=== PATIENT | female | born 1995 | race African-American/Black ===

== ENCOUNTER 2017-03-10 21:05 | Inpatient (IN) | payer MEDICAID ==
[~2017-03-10] VITALS: Ht 167.6 cm; Wt 65.8 kg
[2017-03-10] MEDS ORDERED: KETOROLAC TROMETHAMINE INJ 30 MG/ML VIAL IV ONE (22:30)
[2017-03-10] MEDS ORDERED: HYDROMORPHONE INJ 2 MG/ML DISP.SYRIN IV ONE (22:30)
[2017-03-10] MEDS ORDERED: ONDANSETRON HCL/PF 4 MG/2 ML VIAL IV ONE (22:30)
[2017-03-10] MEDS ORDERED: IV NS 0.9% 1,000 ML BAG IV ONE (22:30)
[2017-03-10] MEDS ORDERED: HYDROMORPHONE INJ 2 MG/ML DISP.SYRIN ONE ×2 (22:54→23:55)
[2017-03-10] MEDS ORDERED: ONDANSETRON HCL/PF 4 MG/2 ML VIAL ONE (22:58)
[2017-03-10] MEDS ORDERED: KETOROLAC TROMETHAMINE 15 MG/ML VIAL ONE (22:58)
[2017-03-10] MEDS ORDERED: HYDROMORPHONE 1 MG/1 ML DISP.SYRIN IV ONE (23:00)
[2017-03-10 23:15] LABS: BASOPHILS # (AUTO) 0.1 /CMM (0.0-0.2); BASOPHILS % (AUTO) 1.6 % (0.0-2.0); EOSINOPHILS # (AUTO) 0.1 /CMM (0.0-0.7); EOSINOPHILS % (AUTO) 1.5 % (0.0-6.0); HEMATOCRIT 26 % (33-45); HEMOGLOBIN 8.4 g/dL (11.5-14.8); LYMPHOCYTES % (AUTO) 36.6 % (20.0-44.0); MEAN CORPUSCULAR HEMOGLOBIN 33 PG (26.0-33.0); MEAN CORPUSCULAR HGB CONC 33 g/dl (31.0-36.0); MEAN CORPUSCULAR VOLUME 100 fL (82-100); MONOCYTES # (AUTO) 0.2 /CMM (0.1-1.30); MONOCYTES % (AUTO) 2.6 % (2.0-12.0); NEUTROPHILS # (AUTO) 4.7 /CMM (1.8-8.9); NEUTROPHILS % (AUTO) 57.7 % (43.0-81.0); PLATELET COUNT (AUTO) 491 /CMM (150-450); RDW COEFFICIENT OF VARIATION 21.7 (11.5-15.0); RED BLOOD CELL COUNT(AUTO) 2.59 MIL/uL (4.0-5.2); WHITE BLOOD COUNT (AUTO) 8.2 K/uL (4.3-11.0)
[2017-03-10 23:30] LABS: CALCIUM, SERUM 9.3 mg/dL (8.5-10.1); CREATININE 0.4 mg/dL (0.6-1.3); POTASSIUM 3.9 mmol/L (3.5-5.1)
[2017-03-10 23:33] LABS: EOSINOPHILS % (MANUAL) 2 % (0-4); LYMPHOCYTES % (MANUAL) 19 % (16-48); MONOCYTES % (MANUAL) 6 % (0-11.0); NEUTROPHILS % (MANUAL) 73 (42-76); PROTHROMBIN TIME 10.4 SECS (9.5-12.7)
[2017-03-11] MEDS ORDERED: diphenhydrAMINE HCL 50 MG/ML VIAL ONE (00:18)
[2017-03-11] MEDS ORDERED: diphenhydrAMINE HCL 50 MG/ML VIAL IV ONE (00:30)
[2017-03-11] MEDS ORDERED: HYDROMORPHONE INJ 2 MG/ML DISP.SYRIN ONE (01:43)
[2017-03-11] MEDS ORDERED: IV NS 0.9% 1,000 ML BAG IV ONE (02:00)
[2017-03-11] MEDS ORDERED: HYDROMORPHONE 1 MG/1 ML DISP.SYRIN IV ONE ×2 (02:00)
--- NOTE | 2017-03-11 02:08 | NUR ---
RADIOLOGY AT BEDSIDE FOR CXR
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
--- NOTE | 2017-03-11 02:56 | NUR ---
PAGED PANEL FOR ADMISSION. DR. SOCTT SPEAKING TO DR. VASQUEZ REGARDING ADMISSION
--- NOTE | 2017-03-11 03:15 | NUR ---
PT OBSERVED RESTING COMFORTABLY, STATING PAIN UNTOUCHED WITH CURRENT PAIN MEDICATION GIVEN. NO GUARDING OR GRIMACING OBSERVED, PT WATCHING TV NOTIFIED.
[2017-03-11] MEDS ORDERED: ACETAMINOPHEN 325 MG TABLET PO PRN (04:00)
[2017-03-11] MEDS ORDERED: LEVOFLOXACIN 750 MG /D5W 150ML 750 MG in PREMIX 1 EA IV SCH (04:00)
[2017-03-11] MEDS ORDERED: MAGNESIUM HYDROXIDE 30 ML UDC PO PRN (04:00)
[2017-03-11] MEDS ORDERED: Z GUARD REMEDY 2 OZ OINT TP PRN (04:00)
[2017-03-11] MEDS ORDERED: ZOLPIDEM TARTRATE 5 MG TABLET PO PRN (04:00)
[2017-03-11] MEDS ORDERED: ONDANSETRON HCL/PF 4 MG/2 ML VIAL IVP PRN (04:00)
[2017-03-11] MEDS ORDERED: MAG HYDROX/AL HYDROX/SIMETH 30 ML UDC PO PRN (04:00)
--- NOTE | 2017-03-11 04:32 | NUR ---
REPORT GIVEN TO BOOM ALTMAN FOR MS BED 207
[2017-03-11] MEDS ORDERED: LEVOFLOXACIN (750 MG) 750 MG TABLET ONE (04:36)
[2017-03-11] MEDS ORDERED: LEVOFLOXACIN 750 MG /D5W 150ML 150 ML IV ONE (04:37)
[2017-03-11 04:44] VITALS: BP 100/60
[2017-03-11] MEDS: IV NS 0.9% 1,000 ML IV PRN ×2 (04:55→20:26)
[2017-03-11 05:00] VITALS: BP 100/60
--- NOTE | 2017-03-11 06:39 | NUR ---
MS RN CLOSING NOTES RECEIVED PT VIA NONA AT 0444 ACLS PROTOCOL FROM [facility]. HEAD TO TOE ASSESSMENT IS DONE SKIN IS INTACT, ASLEEP AND EASILY AWAKEN, STABLE CONDITION. HEAD OF BED ELEVATED FOR BETTER LUNG EXPANSION. TOLERATING ROOM AIR 02 SAT AT 98%. NO NAUSEA, NO VOMITING, NO S/S OF ACUTE DISTRESS, NO SOB, NO COMPLAINS OF CHEST PAIN, RESPIRATIONS EVEN AND UNLABORED. PATIENT DENIES PAIN AT THIS TIME. AFEBRILE, ALL NURSING CARE RENDERED, NEEDS ATTENDED AND ANTICIPATED, KEPT CLEAN AND DRY AND COMFORTABLE, GOOD SKIN CARE PROVIDED. SAFETY HAZARD FREE ENVIRONMENT. ON ATB WITH NO A/R NOTED. CALL LIGHT WITHIN EASY TO REACH, ON LOW BED AT ALL TIMES TO ENSURE SAFETY, WILL ENDORSE TO THE NEXT SHIFT CONTINUE PLAN OF CARE.
--- NOTE | 2017-03-11 07:06 | NUR ---
PT GAVE ME HER MEDICATIONS AT BEDSIDE I TOLD HER THAT WE HAVE TO GET HER MEDICATIONS AND BRING IT TO THE PHARMACIST, WILL ENDORSE TO THE NEXT SHIFT AM BOOM KEEN TO PUT MEDICATION RECONCILIATION IN THE SYSTEM AND TO NOTIFY M.D
--- NOTE | 2017-03-11 08:00 | NUR ---
RN OPENING NOTES PATIENT RESTING COMFORTABLY IN BED. AOX4. DENIES SOB AND CP. COMPLAINING OF GENERALIZED PAIN. RESPIRATIONS EVEN AND UNLABORED. NO ACUTE DISTRESS. IV ACCESS IN THE RIGHT WRIST 22G. NS RUNNING AT 100MLS/HR. BED LOCKED IN THE LOWEST POSITION WITH SIDE RAILS UP X2. CALL LIGHT WITHIN REACH. WILL CONTINUE TO MONITOR ASSESS AND EDUCATE PATIENT THROUGHOUT SHIFT.
[2017-03-11 08:11] VITALS: BP 99/64
[2017-03-11] MEDS ORDERED: IBUP-1955 PO (08:43)
[2017-03-11] MEDS ORDERED: PREG75CA PO (08:43)
[2017-03-11] MEDS ORDERED: BISA-79 PO (08:43)
[2017-03-11] MEDS ORDERED: OXYC5TAB3 PO (08:43)
[2017-03-11] MEDS ORDERED: SENN1TAB21 PO (08:43)
[2017-03-11] MEDS ORDERED: SERT100T PO (08:43)
[2017-03-11] MEDS ORDERED: HYDR500C2 PO (08:43)
[2017-03-11] MEDS ORDERED: FOLI1TAB16 PO (08:43)
[2017-03-11] MEDS: HYDROCODONE/APAP 5/325MG 1 EACH TABLET PO PRN ×3 (08:50→22:48)
--- NOTE | 2017-03-11 10:00 | NUR ---
RN NOTES LACERATIONS NOTED TO BE ON THE ARMS BILATERALLY
[2017-03-11] MEDS: HYDROMORPHONE INJ 2 MG/ML DISP.SYRIN IV PRN ×3 (12:29→21:09)
--- NOTE | 2017-03-11 13:45 | NUR ---
RN NTOES CODE CERVANTES CALLED PATIENT PHYSICALLY AGGRESSIVE WITH STAFF AND VISITOR. THROWING BELONGINGS. PATIENT REQUIRING PHYSICAL STRAINING BY PERSONNEL. PATIENT AT THE BEDSIDE CRYING. DR. BURNS NOTIFIED. PSYCH CONSULT TO BE ORDERED.
--- NOTE | 2017-03-11 14:00 | NUR ---
PATIENT SEEN BY DR. HUMPHREY. ORDERS GIVEN FOR ATIVAN 0.5 MG IV. ORDERS PLACED. AND CARRIED OUT. PATIENT TO BE ASSESS WHEN PATIENT IS CALM.
[2017-03-11] MEDS ORDERED: LORAZEPAM INJ 2 MG/ML VIAL IV PRN (14:30)
[2017-03-11] MEDS ORDERED: LORAZEPAM 0.5 MG TABLET PO PRN (15:00)
--- NOTE | 2017-03-11 15:40 | NUR ---
RN NOTES NEW IV PLACED. 22 G RFA. TOLERATED WELL. 2 ATTEMPTS. NO S/S INFILTRATION. WILL CONTINUE TO MONITOR. DR. HUMPHREY RETURNED FOR EVALUATION. PATIENT TO BE PLACED ON 1:1 SITTER FOR SAFETY. WILL CONTINUE TO MONITOR.
[2017-03-11 15:58] VITALS: BP 115/69
--- NOTE | 2017-03-11 16:26 | NUR ---
RN NOTES [facility].
[2017-03-11] MEDS ORDERED: BISACODYL (5 MG) 5 MG TABLET.DR PO PRN (17:00)
[2017-03-11] MEDS ORDERED: SENNOSIDES/DOCUSATE SODIUM 1 TAB TABLET PO PRN (17:00)
[2017-03-11] MEDS: PREGABALIN 25 MG CAPSULE PO SCH (17:48)
--- NOTE | 2017-03-11 19:30 | NUR ---
RN NOTES RECEIVED PT. AWAKE ON BED, A/OX4, SITTER AT BEDSIDE, DENIES PAIN AT THIS TIME, NMO SOB, CALL LIGHT WITHIN REACH, SIDERAILS UP X2 CONTINUE TO MONITOR
--- NOTE | 2017-03-11 19:40 | NUR ---
RN CLOSING NOTES PATIENT RESTING COMFORTABLY IN BED. AOX4. 1:1 AT THE BED SIDE FOR SAFETY. PATIENT COMBATIVE. DENIES CP OR SOB. COMPLAINING OF PAIN 01/30. WILL ENDORSE. RESPIRATIONS EVEN AND UNLABORED. RFA 22G PATENT AND INTACT. NS RUNNING AT 100ML/HR. ALL NEEDS MET. ALL MEDS GIVEN APPROPRIATE. INCIDENT REPORT FILLED. WILL ENDORSE TO NIGHT RN FOR PATRICIA
[2017-03-11 20:00] VITALS: BP 123/69
[2017-03-11 20:09] VITALS: BP 123/69
--- NOTE | 2017-03-11 21:00 | NUR ---
RN NOTES COMPLAINED OF GENERALIZED PAIN- DILAUDID 2MG IV GIVEN ORDERED, V/S STABLE
--- NOTE | 2017-03-11 22:53 | NUR ---
RN NOTES COMPLAINED OF BACK PAIN AND ASKED FOR NORCO NORCO 5/325 MG PO GIVEN ORDERED, V/S STABLE
[2017-03-12] MEDS ORDERED: HYDROMORPHONE INJ 2 MG/ML DISP.SYRIN ONE (00:19)
[2017-03-12] MEDS: HYDROMORPHONE INJ 2 MG/ML DISP.SYRIN IV PRN ×4 (06:11→18:35)
[2017-03-12] MEDS: LEVOFLOXACIN 750 MG /D5W 150ML 750 MG in PREMIX 1 EA IV SCH (06:11)
[2017-03-12] MEDS: IV NS 0.9% 1,000 ML IV PRN ×2 (06:13→22:11)
[2017-03-12 06:22] LABS: APPEARANCE,URINE CLEAR (CLEAR); BILIRUBIN,URINE NEGATIVE (NEGATIVE); BLOOD, URINE NEGATIVE Ery/uL (NEGATIVE); COLOR,URINE YELLOW (YELLOW); KETONES,URINE NEGATIVE (NEGATIVE); LEUKOCYTE ESTERASE ,URINE NEGATIVE (NEGATIVE); NITRITE, URINE NEGATIVE (NEGATIVE); PROTEIN,URINE NEGATIVE (NEGATIVE); UGLUCOSE NEGATIVE (NEGATIVE)
--- NOTE | 2017-03-12 07:00 | NUR ---
RN NOTES AWAKE, DENIES PAIN AT THIS TIME, NO SOB, MORNING CARE RENDERED, SITTER AT BEDSIDE, PT. NEEDS ATTENDED
--- NOTE | 2017-03-12 07:00 | NUR ---
RN NOTES COMPLAINED OF BACK PAIN- DILAUDID 2MG IV GIVEN ORDERED, V/S STABLE
--- NOTE | 2017-03-12 07:30 | NUR ---
MS/RN Patient received Patient received from shift commander. Sleeping at this time, appears in no distress. Call light within reach as well as sitter for safety. Will continue to monitor.
--- NOTE | 2017-03-12 09:00 | NUR ---
MS/RN Medications Morning medications administered as ordered.
[2017-03-12] MEDS: SERTRALINE HCL 50 MG TABLET PO SCH (09:17)
[2017-03-12] MEDS: PREGABALIN 25 MG CAPSULE PO SCH ×2 (09:17→16:53)
[2017-03-12] MEDS: FOLIC ACID 1 MG TABLET PO SCH (09:17)
--- NOTE | 2017-03-12 10:10 | NUR ---
MS/RN Room change Patient's room changed as no hot water in room 207.
--- NOTE | 2017-03-12 10:15 | NUR ---
MS/RN Pain Patient complaining of pain 12/31. Dilaudid 2mg given as ordered, will monitor effectiveness.
[2017-03-12 10:23] LABS: EOSINOPHILS # (AUTO) 0.1 /CMM (0.0-0.7); EOSINOPHILS % (AUTO) 1.8 % (0.0-6.0); HEMATOCRIT 28 % (33-45); HEMOGLOBIN 9.1 g/dL (11.5-14.8); LYMPHOCYTES # (AUTO) 2.7 /CMM (0.8-4.8); LYMPHOCYTES % (AUTO) 49.8 % (20.0-44.0); MEAN CORPUSCULAR HEMOGLOBIN 33 PG (26.0-33.0); MEAN CORPUSCULAR HGB CONC 33 g/dl (31.0-36.0); MEAN CORPUSCULAR VOLUME 100 fL (82-100); MONOCYTES # (AUTO) 0.7 /CMM (0.1-1.30); MONOCYTES % (AUTO) 13.3 % (2.0-12.0); NEUTROPHILS # (AUTO) 1.9 /CMM (1.8-8.9); NEUTROPHILS % (AUTO) 35.1 % (43.0-81.0); PLATELET COUNT (AUTO) 500 /CMM (150-450); RDW COEFFICIENT OF VARIATION 23.2 (11.5-15.0); RED BLOOD CELL COUNT(AUTO) 2.79 MIL/uL (4.0-5.2); WHITE BLOOD COUNT (AUTO) 5.5 K/uL (4.3-11.0)
[2017-03-12 10:42] LABS: ALBUMIN 3.8 g/dL (3.4-5.0); BILIRUBIN,TOTAL 1.7 mg/dL (0.2-1.0); CALCIUM, SERUM 9.1 mg/dL (8.5-10.1); CREATININE 0.7 mg/dL (0.6-1.3); MAGNESIUM 1.8 mg/dL (1.8-2.4); POTASSIUM 4.2 mmol/L (3.5-5.1); TOTAL PROTEIN, SERUM 7.4 g/dL (6.4-8.2)
--- NOTE | 2017-03-12 10:45 | NUR ---
MS/RN Medical records [facility] Sourav hansen.
--- NOTE | 2017-03-12 11:00 | NUR ---
MS/RN Pain reassessment Pain now better controlled, patient now sleeping.
[2017-03-12 11:41] LABS: LYMPHOCYTES % (MANUAL) 31 % (16-48); MONOCYTES % (MANUAL) 10 % (0-11.0); NEUTROPHILS % (MANUAL) 59 (42-76)
[2017-03-12 11:47] LABS: ABG BASE EXCESS -1.5 mmol/L; ABG OXYGEN SATURATION 95.1 % (92.0-98.5); ABG PCO2 33.3 mmHg (35.0-45.0); ABG PH 7.443 (7.350-7.450); ABG PO2 92.8 mmHg (75.0-100.0); AaDO2 17.1 mmHg; COHb 0.8 % (0.5-1.5); MetHb 0.9 % (0.0-1.5); O2Hb 93.5 % (94.0-97.0); SITE, ABG Right Radial; VENT MODE, BG ROOM AIR
[2017-03-12] MEDS ORDERED: HYDROXYUREA 500 MG CAPSULE PO SCH (13:00)
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
--- NOTE | 2017-03-12 13:51 | NUR ---
MS/RN Increase in medication dose Patient requesting that dilaudid dose be increased, stating that the pain was getting worse. Will call .
[2017-03-12 16:00] VITALS: BP 126/81
[2017-03-12] MEDS: HYDROXYUREA 500 MG CAPSULE PO SCH (16:53)
--- NOTE | 2017-03-12 17:30 | NUR ---
MS/RN S/B Dr Tanner Seen by Dr Tanner - zoloft 100mg ordered for every morning. No other changes to medications.
--- NOTE | 2017-03-12 18:52 | NUR ---
MS/RN End note No changes in care at this time, last pain medication administered at 1830 for pain scale 9/10. Will endorse to night coordinator.
--- NOTE | 2017-03-12 19:30 | NUR ---
MS RN NOTE: PATIENT RESTING IN BED, NO ACUTE DISTRESS NOTED. BREATHING EVEN AND UNLABORED, NO SOB NOTED. IV TO RFA IN PLACE, INFUSING NS AT 100 ML/HR. PATIENT DENIES SUICIDAL THOUGHT AT THIS TIME. SITTER AT BEDSIDE. BED LOCKED AND IN LOWEST POSITION, CALL LIGHT IN REACH. WILL CONTINUE TO MONITOR.
[2017-03-12 20:00] VITALS: BP 115/90
[2017-03-13] MEDS: HYDROMORPHONE INJ 2 MG/ML DISP.SYRIN IV PRN ×4 (00:23→13:43)
--- NOTE | 2017-03-13 00:30 | NUR ---
MS RN NOTE: PATIENT COMPLAINS OF PAIN TO BACK 12/31, DILAUDID 2MG IV GIVEN PER MD ORDER. WILL CONTINUE TO MONITOR.
--- NOTE | 2017-03-13 02:15 | NUR ---
MS/RN NOTES RECEIVED PT. FROM [facility] SURG 2ND FLOOR VIA BED. PT. IS LYING IN BED RESTING COMFORTABLY. BREATHING EVEN AND UNLABORED ON ROOM AIR. NO SOB, RESPIRATORY DISTRESS OR COMPLAINTS OF PAIN NOTED AT THIS TIME. ORIENTED PT. TO ROOM. PT. DENIES ANY SUICIDAL THOUGHTS AT THIS TIME. PT. WITH 1:1 SITTER PRESENT AT BEDSIDE. BED LOCKED AND IN LOWEST POSITION, SIDE RAILS UP X2, CALL LIGHT WITHIN REACH, WILL CONTINUE TO MONITOR.
[2017-03-13] MEDS: LEVOFLOXACIN 750 MG /D5W 150ML 750 MG in PREMIX 1 EA IV SCH (05:55)
--- NOTE | 2017-03-13 06:44 | NUR ---
MS/RN NOTES PT. IS LYING IN BED AWAKE, ALERT AND ORIENTED X3. BREATHING EVEN AND UNLABORED ON ROOM AIR. NO SOB, RESPIRATORY DISTRESS OR COMPLAINTS OF PAIN NOTED AT THIS TIME. PT. WITH RIGHT FOREARM PERIPHERAL IV PRESENT, PATENT AND INTACT ADMINISTERING TO PT. NS @ 100 ML/HR. PT. WITH 1:1 SITTER PRESENT AT BEDSIDE. PT. DENIES ANY SUICIDAL THOUGHTS AT THIS TIME AND THROUGHOUT SHIFT. ALL PT. NEEDS MET. BED LOCKED AND IN LOWEST POSITION, SIDE RAILS UP X2, CALL LIGHT WITHIN REACH, WILL CONTINUE TO MONITOR. Addendum: 03/13/17 at 0647 by BROCK YOST RN WILL ENDORSE TO [facility] NURSE FOR CONTINUITY OF CARE.
--- NOTE | 2017-03-13 07:20 | NUR ---
RN OPENING NOTES RECEIVED PATIENT IN BED RESTING. A/OX4. NO ACUTE DISTRESS, NO SOB NOTED. DENIES PAIN AT THE MOMENT. IV SITE INTACT AND PATENT. NO SUICIDAL IDEATION, SITTER AT BEDSIDE FOR SAFETY. BED IN LOW POSITION, LOCKED, SIDERAILS UPX2, CALL LIGHT IN REACH, WILL CONTINUE TO MONITOR ACCORDINGLY.
[2017-03-13] MEDS ORDERED: SERTRALINE HCL 50 MG TABLET PO SCH (09:00)
[2017-03-13] MEDS: IV NS 0.9% 1,000 ML IV PRN (09:16)
[2017-03-13] MEDS: FOLIC ACID 1 MG TABLET PO SCH (09:21)
[2017-03-13] MEDS: SERTRALINE HCL 50 MG TABLET PO SCH (09:22)
[2017-03-13] MEDS: PREGABALIN 25 MG CAPSULE PO SCH (09:22)
[2017-03-13] MEDS: HYDROXYUREA 500 MG CAPSULE PO SCH (09:23)
[2017-03-13 10:18] LABS: HEMATOCRIT 26 % (33-45); HEMOGLOBIN 8.5 g/dL (11.5-14.8); MEAN CORPUSCULAR HEMOGLOBIN 33 PG (26.0-33.0); MEAN CORPUSCULAR HGB CONC 32 g/dl (31.0-36.0); MEAN CORPUSCULAR VOLUME 101 fL (82-100); PLATELET COUNT (AUTO) 430 /CMM (150-450); RDW COEFFICIENT OF VARIATION 21.6 (11.5-15.0); WHITE BLOOD COUNT (AUTO) 5.1 K/uL (4.3-11.0)
[2017-03-13 10:28] LABS: CALCIUM, SERUM 8.8 mg/dL (8.5-10.1); CREATININE 0.5 mg/dL (0.6-1.3); POTASSIUM 3.7 mmol/L (3.5-5.1)
--- NOTE | 2017-03-13 12:14 | NUR ---
MARÍA ELENA and JONATHAN Chu met with pt. bedside to discuss discharge plan. Pt. continues to decline care home placement and resources that were offered to her. Pt. is willing to accept bus tokens. MARÍA ELENA informed nursing supervisor international reservations regarding pt. needing bus tokens. Per nursing supervisor international reservations Alejandra two bus tokens were given to pt. No other social service needs are required at this time. SW is available, if needed.
[2017-03-13 12:48] LABS: LYMPHOCYTES % (MANUAL) 44 % (16-48); MONOCYTES % (MANUAL) 4 % (0-11.0); NEUTROPHILS % (MANUAL) 52 (42-76)
[2017-03-13 16:00] VITALS: BP 105/60
--- NOTE | 2017-03-13 17:00 | NUR ---
SUPERVISOR CHEMICAL NOTES DISCHARGE PATIENT IN STABLE CONDITION ACCOMPANIED BY BOOM MATTA. PATIENT WAS GIVEN BUS TOKENS. DISCHARGE INSTRUCTIONS/TEACHING DONE, PATIENT VERBALIZED UNDERSTANDING. D/C IV SITE, APPLIED PRESSURE, NO BLEEDING, NO COMPLICATIONS. ALL BELONGINGS GIVEN BACK TO PATIENT, BELONGINGS FORM SIGNED. MEDICATIONS WAS GIVEN BACK TO PATIENT WELL. DISCHARGE PAPERWORK AND RESOURCE, GIVEN BY PACKING MACHINE OPERATOR, GIVEN BUT REFUSED TO TAKE IT AND PATIENT LEFT IT BEHIND.
== END 2017-03-13 16:45 | disposition home or self-care (01) | DRG 662 ==
LOC: ER 21:07 → MEDSG2 03-11 03:24 → MED 03-13 02:30
PROVIDERS: ADMIT Internal Medicine; ATTEND Internal Medicine
DX: D57.00 Hb-SS disease with crisis, unspecified (principal); F33.0 Major depressive disorder, recurrent, mild; F39 Unspecified mood [affective] disorder; J45.909 Unspecified asthma, uncomplicated; Z59.0 Homelessness; F19.90 Other psychoactive substance use, unspecified, uncomplicated; R91.8 Other nonspecific abnormal finding of lung field
CPT/HCPCS: 36415; 36600; 71010-TC; 80048-TC; 80053-TC; 80061-TC; 81000-TC; 82150-TC; 82803-TC; 83540-TC; 83690-TC; 83735-TC; 84100-TC; 84703-TC; 85025-TC; 85045-TC; 85610-TC; 87040-TC; 87081-TC; 93307-TC; A4216; A4606; J1170; J1200; J1885; J1956; J2060; J2405; J3490; J7030; Z7610